=== PATIENT | female | born 1995 | race Caucasian/White ===

== ENCOUNTER 2021-12-05 13:37 | Emergency (ER) | payer MEDICAID ==
[~2021-12-05] VITALS: Ht 170.2 cm; Wt 79.5 kg
[2021-12-05 13:45] VITALS: BP 143/87
[2021-12-05] MEDS ORDERED: LIDO20SO16 PO (14:40)
[2021-12-05] MEDS ORDERED: AZIT-103 PO (14:40)
[2021-12-05] MEDS ORDERED: PRED20TA PO (14:40)
--- NOTE | 2021-12-05 14:45 | NUR ---
PT TOOK MULTIPLE TRIPS TO THE RESTROOM WITH STEADY GAIT.
--- NOTE | 2021-12-05 14:50 | NUR ---
PROVIDED WITH CUP OF WATER.
== END 2021-12-05 14:56 | disposition home or self-care (01) ==
LOC: ER 13:38
DX: J20.9 Acute bronchitis, unspecified (principal); Z79.2 Long term (current) use of antibiotics; Z79.899 Other long term (current) drug therapy; Z91.018 Allergy to other foods
CPT/HCPCS: 99283

== ENCOUNTER 2021-12-12 23:15 | Emergency (ER) | payer MEDICAID ==
[~2021-12-12] VITALS: Ht 162.6 cm; Wt 90.0 kg
[~2021-12-12 23:15] MED LIST: AZIT-103 PO; LIDO20SO16 PO
[2021-12-12] MEDS ORDERED: acetaminophen 325mg tablet PO ONE (23:20)
[2021-12-12] MEDS ORDERED: bacitracin 15gm ointment TP ONE (23:20)
[2021-12-13 00:04] VITALS: BP 136/74
== END 2021-12-13 00:06 | disposition home or self-care (01) ==
LOC: ER 23:16
DX: S80.212A Abrasion, left knee, initial encounter (principal); M25.562 Pain in left knee; Z91.018 Allergy to other foods; W01.0XXA Fall on same level from slipping, tripping and stumbling without subsequent striking against object, initial encounter; Y93.89 Activity, other specified; Y92.89 Other specified places as the place of occurrence of the external cause; Y99.8 Other external cause status
CPT/HCPCS: 99284

== ENCOUNTER 2022-01-06 20:33 | Emergency (ER) | payer MEDICAID ==
[~2022-01-06] VITALS: Ht 170.2 cm; Wt 81.8 kg
[2022-01-06 21:01] VITALS: BP 120/80
== END 2022-01-06 22:29 | disposition home or self-care (01) ==
LOC: ER 20:34
DX: T43.621A Poisoning by amphetamines, accidental (unintentional), initial encounter (principal); F31.9 Bipolar disorder, unspecified; Z91.018 Allergy to other foods; Y92.89 Other specified places as the place of occurrence of the external cause
CPT/HCPCS: 99283

== ENCOUNTER 2022-01-09 18:10 | Emergency (ER) | payer MEDICAID ==
[~2022-01-09] VITALS: Ht 170.2 cm; Wt 75.0 kg
[2022-01-09 18:11] VITALS: BP 127/76
[2022-01-09] MEDS ORDERED: LORazepam 1 MG tablet PO ONE (19:00)
== END 2022-01-09 19:09 | disposition home or self-care (01) ==
LOC: ER 18:11
DX: F41.9 Anxiety disorder, unspecified (principal); E86.0 Dehydration; F31.9 Bipolar disorder, unspecified; F15.20 Other stimulant dependence, uncomplicated; Z91.018 Allergy to other foods
CPT/HCPCS: 99283

== ENCOUNTER 2022-01-27 14:31 | Emergency (ER) | payer MEDICAID ==
[~2022-01-27] VITALS: Ht 170.2 cm; Wt 72.7 kg
[2022-01-27 14:36] VITALS: BP 111/68
[2022-01-27 15:26] LABS: URINE HCG NEGATIVE (NEG)
[2022-01-27 15:30] LABS: CLARITY,URINE CLOUDY (Clear); COLOR,URINE YELLOW (Yellow); GLUCOSE, URINE NEGATIVE (Neg); KETONES,URINE NEGATIVE (Neg); LEUKOCYTE ESTERASE ,URINE LARGE (Neg); NITRITES, URINE NEGATIVE (Neg); OCCULT BLOOD,URINE SMALL (Neg); PH,URINE 5.5 (4.8-8.0); PROTEIN,URINE NEGATIVE (Neg); UROBILINOGEN,URINE 0.2 E.U/dL (0.2-1.0)
[2022-01-27 15:31] LABS: UA COLLECTION TYPE CLN CATCH MIDSTREAM
[2022-01-27 15:37] LABS: BACTERIA,URINE 4+ /HPF (Neg); SQUAMOUS EPITHELIAL CELL,UR MANY /LPF (FEW); WBC,URINE TNTC /HPF (0-4)
[2022-01-27 15:38] LABS: CAL OXALATE CRYSTALS FEW /HPF (NEGATIVE); MUCUS STRANDS FEW /LPF (Neg); TRANSITIONAL EPI CELLS,URINE FEW /HPF; WBC CLUMPS,URINE FEW /HPF (NEGATIVE)
[2022-01-27] MEDS ORDERED: ibuprofen tablet 400 MG TABLET PO ONE (16:10)
[2022-01-27] MEDS ORDERED: CEPH-585 PO (16:22)
--- NOTE | 2022-01-27 16:32 | NUR ---
po med given wound cleaned with woundclenz dressing applied
== END 2022-01-27 16:38 | disposition home or self-care (01) ==
LOC: ER 14:32
DX: S80.212A Abrasion, left knee, initial encounter (principal); N39.0 Urinary tract infection, site not specified; F17.200 Nicotine dependence, unspecified, uncomplicated; F15.10 Other stimulant abuse, uncomplicated; F12.10 Cannabis abuse, uncomplicated; Z91.010 Allergy to peanuts; Z79.1 Long term (current) use of non-steroidal anti-inflammatories (NSAID); W18.39XA Other fall on same level, initial encounter; Y93.89 Activity, other specified; Y92.89 Other specified places as the place of occurrence of the external cause; Y99.8 Other external cause status
CPT/HCPCS: 73564; 81001; 81025; 99284; A6222; A6449

== ENCOUNTER 2022-02-12 02:54 | Emergency (ER) | payer MEDICAID ==
[~2022-02-12] VITALS: Ht 165.1 cm; Wt 70.5 kg
[2022-02-12] MEDS ORDERED: haloperidol lactate 5mg/ml inj IM ONE (03:25)
[2022-02-12] MEDS ORDERED: diphenhydrAMINE 50 mg/ml inj IM ONE (03:25)
[2022-02-12] MEDS ORDERED: LORazepam 2 mg/ml vial IM ONE (03:25)
[2022-02-12 03:42] LABS: URINE HCG NEGATIVE (NEG)
[2022-02-12 03:45] LABS: CLARITY,URINE SLIGHTLY CLOUDY (Clear); COLOR,URINE YELLOW (Yellow); GLUCOSE, URINE NEGATIVE (Neg); KETONES,URINE NEGATIVE (Neg); LEUKOCYTE ESTERASE ,URINE TRACE (Neg); NITRITES, URINE NEGATIVE (Neg); OCCULT BLOOD,URINE NEGATIVE (Neg); PROTEIN,URINE NEGATIVE (Neg)
[2022-02-12 03:57] LABS: URINE AMPHETAMINE SCREEN POSITIVE (Neg); URINE BARBITUATE SCREEN NEGATIVE (Neg); URINE BENZODIAZEPINES SCREEN NEGATIVE (Neg); URINE CANNABINOID SCREEN POSITIVE (Neg); URINE COCAINE SCREEN NEGATIVE (Neg); URINE METHADONE SCREEN NEGATIVE (Neg); URINE OPIATE SCREEN NEGATIVE (Neg); URINE PHENCYCLIDINE SCREEN NEGATIVE (Neg)
[2022-02-12 04:05] LABS: UA COLLECTION TYPE CLN CATCH MIDSTREAM
[2022-02-12 04:07] LABS: BACTERIA,URINE 1+ /HPF (Neg); MUCUS STRANDS MODERATE /LPF (Neg); RBC,URINE NONE SEEN /HPF (0-2); SQUAMOUS EPITHELIAL CELL,UR MANY /LPF (FEW); WBC,URINE 20-30 /HPF (0-4)
[2022-02-12 05:11] LABS: BASOPHILS % (AUTO) 0.3 % (0-1); EOSINOPHILS # (AUTO) 0.1 X10'3 (0-0.9); HEMATOCRIT 35.2 % (35.0-45.0); LYMPHOCYTES # (AUTO) 1.9 X10'3 (1.1-4.8); LYMPHOCYTES % (AUTO) 18.6 % (21-51); MEAN CORPUSCULAR HEMOGLOBIN 31.3 PG (27.0-31.0); MEAN PLATELET VOLUME 7.8 FL (7.4-10.4); MONOCYTES # (AUTO) 0.7 X10'3 (0-0.9); MONOCYTES % (AUTO) 6.8 % (2-12); NEUTROPHILS # (AUTO) 7.7 X10'3 (1.8-7.7); NEUTROPHILS % (AUTO) 73.3 % (42-75); PLATELET COUNT 329 X10'3 (140-440); RED BLOOD COUNT 3.83 X10'6 (4.20-5.60); WHITE BLOOD COUNT 10.5 X10'3 (4.5-11.0)
[2022-02-12 05:26] LABS: ALANINE AMINOTRANSFERASE 23 U/L (12-78); ALBUMIN 3.6 G/DL (3.4-5.0); ALKALINE PHOSPHATASE 74 IU/L (46-116); ANION GAP 10 (8-16); ASPARTATE AMINO TRANSFERASE 23 U/L (10-37); BILIRUBIN,TOTAL 0.3 MG/DL (0.1-1.0); BLOOD UREA NITROGEN 8 MG/DL (7-18); BUN/CREATININE RATIO 11.8 (6.6-38.0); CALCIUM 8.6 MG/DL (8.5-10.1); CHLORIDE 103 MMOL/L (99-107); CREATININE 0.68 MG/DL (0.40-0.90); GLUCOSE 95 MG/DL (70-104); POTASSIUM 3.1 MMOL/L (3.5-5.1); SODIUM 138 MMOL/L (135-145); TOTAL CARBON DIOXIDE 25.2 MMOL/L (24-32); TOTAL PROTEIN 7.1 G/DL (6.4-8.2); eGFR > 90 ML/MIN
[2022-02-12 05:36] LABS: ETHANOL < 0.010 GM/DL (0.0-0.010)
--- NOTE | 2022-02-12 05:46 | NUR ---
PT SLEEPING WITH EVEN RESP, NO S/SX OF DISCOMFORT OR DISTRESS.
[2022-02-12 05:49] VITALS: BP 132/80
--- NOTE | 2022-02-12 07:15 | NUR ---
Pt brought from ED room 8 and taken to overflow room 23. Pt walked to restroom and back to room, pt now laying on hospital bed.
--- NOTE | 2022-02-12 07:41 | NUR ---
ISABELLE SENT PT PACKET TO [facility]
--- NOTE | 2022-02-12 08:30 | NUR ---
Pt sleeping, and shakes head no when informed breakfast trays are here and then rolls to other side and goes back to sleep. Covered breakfast tray left at bedside.
--- NOTE | 2022-02-12 09:15 | NUR ---
Verified packet received at [facility] office, report that evaluators to be in this am from [facility].
--- NOTE | 2022-02-12 09:55 | NUR ---
patient asleep,laying supine.
--- NOTE | 2022-02-12 11:22 | NUR ---
Pt continues to lay with eyes closed, effortless respirations observed.
--- NOTE | 2022-02-12 11:34 | NUR ---
Pt now awake sitting at edge of bed eating breakfast tray.
--- NOTE | 2022-02-12 13:07 | NUR ---
Pt sitting and eating lunch tray.
--- NOTE | 2022-02-12 13:35 | NUR ---
Report given to Marycruz from [facility].
[2022-02-12] MEDS ORDERED: LORazepam 1 MG tablet PO ONE (14:00)
[2022-02-12] MEDS ORDERED: diphenhydrAMINE 25mg capsule PO ONE (14:00)
--- NOTE | 2022-02-12 15:10 | NUR ---
[facility] staff will come and pick up attendant patient to be transported to [facility].
== END 2022-02-12 16:16 ==
LOC: ER 02:55
DX: F23 Brief psychotic disorder (principal); Z20.822 Contact with and (suspected) exposure to COVID-19; F31.9 Bipolar disorder, unspecified; F12.90 Cannabis use, unspecified, uncomplicated; F15.20 Other stimulant dependence, uncomplicated; Z91.018 Allergy to other foods; Z59.00 Homelessness unspecified
CPT/HCPCS: 36415; 80053; 80305; 80320; 81001; 81025; 84443; 85025; 87811; 96372; 99285; J1200; J1630; J2060; Q0163

== ENCOUNTER 2022-04-02 21:57 | Emergency (ER) | payer MEDICAID ==
[~2022-04-02] VITALS: Ht 170.2 cm; Wt 77.3 kg
[2022-04-02 22:11] VITALS: BP 145/114
--- NOTE | 2022-04-02 22:30 | NUR ---
Pt not in lobby. Belongings left behind.
--- NOTE | 2022-04-02 23:30 | NUR ---
Pt returned to lobby. Discussed importance of waiting in lobby to expedite assessment. Also instructed to keep belongings with her at all times; we are not responsible for lost/ stolen belongings. Pt communicated understanding.
[2022-04-03] MEDS ORDERED: bacitracin 15gm ointment TP ONE (01:50)
[2022-04-03] MEDS ORDERED: BACI28OI9 TP (01:51)
== END 2022-04-03 02:50 | disposition home or self-care (01) ==
LOC: ER 21:59
DX: L08.9 Local infection of the skin and subcutaneous tissue, unspecified (principal); F31.9 Bipolar disorder, unspecified; F12.90 Cannabis use, unspecified, uncomplicated; F15.90 Other stimulant use, unspecified, uncomplicated; F19.90 Other psychoactive substance use, unspecified, uncomplicated; Z59.00 Homelessness unspecified; Z91.018 Allergy to other foods; Z79.899 Other long term (current) drug therapy
CPT/HCPCS: 99283